=== PATIENT | female | born 2005 | race Caucasian/White ===

== ENCOUNTER 2023-07-02 15:30 | Emergency (ER) | payer BC ==
[2023-07-02 16:49] LABS: #Monocytes 0.9 10x3/uL (0.0-1.1); #Neutrophils 3.5 10x3/uL (1.5-8.4); %Basophils 0.3 % (0.0-2.0); %Eosinophils 0.2 % (0.0-6.0); %Lymphocytes 26.7 % (18.0-47.0); %Monocytes 14.5 % (0.0-10.0); %Neutrophils 58.1 % (40.0-75.0); Hematocrit 39.3 % (34.9-44.5); Hemoglobin 13.8 g/dL (12.0-15.5); Mean Corpuscular HGB CONC 35.1 g/dL (32.0-36.0); Mean Corpuscular Hemoglobin 30.2 pg (27.0-33.0); Mean Platelet Volume 10.6 fl (7.4-10.4); Platelet Count 228 10x3/uL (150-450); RBC Distribution Width 11.8 % (11.5-14.5); Red Blood Cell (RBC) Count 4.57 10x6/uL (3.90-5.03); White Blood Cell (WBC) Count 6.1 10x3/uL (3.5-10.5)
[2023-07-02 16:54] LABS: Phosphorus 3.4 mg/dL (2.3-4.7)
[2023-07-02] MEDS ORDERED: Ondansetron PF 4 MG/2 ML Vial ONE (16:54)
[2023-07-02 16:57] LABS: ALT (SGPT) 16 U/L (8-55); AST (SGOT) 23 U/L (5-30); Albumin 4.4 g/dL (3.5-5.0); Alkaline Phosphatase 52 U/L (40-100); Anion Gap 16 mmol/L (10-20); BUN (Urea Nitrogen) 20 mg/dL (8.4-21.0); Bilirubin, Total 0.8 mg/dL (0.2-1.2); Calc. Creatinine Clearance 0 mL/min (70-130); Calcium 8.8 mg/dL (7.8-10.44); Carbon Dioxide 19 mmol/L (22-29); Chloride 103 mmol/L (98-107); Estimated GFR 106; Globulin 2.8 g/dL (2.4-3.5); Glucose 79 mg/dL (70-105); Lipase 26 U/L (8-78); Potassium 3.1 mmol/L (3.5-5.1); Protein, Total 7.2 g/dL (6.0-8.3); Sodium 135 mmol/L (136-145)
[2023-07-02 17:11] LABS: Bilirubin Neg (Negative); Blood, Urine Negative (Negative); Glucose, Urine (Dipstick) Normal (Negative); Ketone, Urine 15 mg/dL (Negative); Leukocyte 25 (Negative); Nitrite Negative (Negative); Protein, Urine (Dipstick) 15 mg/dl (Neg-Trace); Urobilinogen Normal mg/dL (Less than 2); pH, Urine 6.5 (5.0-9.0)
[2023-07-02 17:12] LABS: Clarity Clear (Clear)
[2023-07-02 17:13] LABS: Pregnancy Test - Urine (BHCG) Negative (Negative); Pregu Control Background? CLEAR/WHITE (CLR/WHITE); Pregu Control Bar Appear? YES (CONTROL BAR)
[2023-07-02] MEDS ORDERED: Potassium Chloride 20 MEQ (100 mL) BAG ONE (17:13)
[2023-07-02 17:25] LABS: Magnesium 1.9 mg/dL (1.7-2.2)
[2023-07-02 17:26] LABS: CAUTI Indications for Culture Pelvic or flank pain; RBC/HPF 0-3 HPF (0-3)
[2023-07-02 17:27] LABS: Bacteria/HPF 2+ HPF (None Seen); Mucous/LPF 1+ LPF (<2+)
[2023-07-02 17:29] LABS: Urine Culture Reflex No No
== END 2023-07-02 19:20 | disposition home or self-care (01) ==
LOC: CSHERS 15:30
DX: R11.2 Nausea with vomiting, unspecified (principal); R19.7 Diarrhea, unspecified
CPT/HCPCS: 80053; 81001; 81025; 83690; 83735; 84100; 85025; 96365; 96366; 96375; J2405; J3480